=== PATIENT | female | born 1960 | race Two or more races ===

== ENCOUNTER → 2024-09-03 | Outpatient (CLI) | payer OTHER, MEDICAID, SELFPAY ==
--- NOTE | 2024-09-03 15:00 | XR_ITS ---
Examination: Duplex scan of the lower extremity, unilateral right complete Date and time of exam: September 03, 2024 1412 hours INDICATIONS: Right leg pain beginning 4 days ago Technique: Duplex scan of the extremity veins using B-mode/grayscale imaging and Doppler spectral analysis and color flow Attention is directed to internal echogenicity, compression and augmentation involving these veins, color flow assessment, spectral analysis Findings: Major deep venous structures in the extremity demonstrate normal course and caliber. There is no evidence of deep vein thrombosis. Normal color flow and spectral analysis Impression: Negative for DVT..
== END | disposition home or self-care (01) ==
LOC: CDIM 14:53
PROVIDERS: PCP Nurse Practitioner Family; Referring Provider Nurse Practitioner Family; Visit Provider Nurse Practitioner Family
DX: M79.604 Pain in right leg (principal)
CPT/HCPCS: 93971

== ENCOUNTER 2024-09-06 08:42 | Emergency (ER) | payer OTHER, MEDICAID, SELFPAY ==
[2024-09-06 08:55] VITALS: PULSE 72; O2SAT 100
[2024-09-06 08:59] VITALS: BP 186/74; PULSE 67; RESP 18; TEMP 36.7; O2SAT 99
[2024-09-06 09:20] VITALS: BP 157/65; PULSE 62; RESP 19; TEMP 37.1; O2SAT 99
--- NOTE | 2024-09-06 09:24 | PC.NURSE ---
patient here due to increased pain to dorsal lower leg. states the pain is severe when she tries to bare wt. pain has been for 5 days. did see provider given pain med and us done on leg, was told negative for blood clot. rt foot warn to touch, pedal pulse present. dorsal leg hurts from calf down to above ankle with worse pain above ankle. patient states the us was done on calf area, they did not go down all the way.
--- NOTE | 2024-09-06 09:28 | EKG_ITS ---
[facility] Test Date: 2024-09-06 Pat Name: DULCE CORDOVA Department: Room: - Gender: Female [employer]ley[employer] Commentator: : 1960 Requested By: Cande Ortiz Order Number: [id number] Reading MD: Cande Ortiz Measurements Intervals [place] Rate: 61 P: 44 [place]: 174 QRS: 16 QRSD: 94 T: 60 QT: 436 QTc: 440 Interpretive Statements SINUS RHYTHM LOW QRS VOLTAGE IN PRECORDIAL LEADS [QRS DEFLECTION < 1.0 mV IN CHEST LEADS] No previous ECG available for comparison /store/S0/[id number]/ecg/[id number].pdf
--- NOTE | 2024-09-06 09:53 | PD.EDLOWEX ---
Lower Extremity Injury RME/HPI General Chief Complaint: General Adult/Misc Complain Stated Complaint: RIGHT LEG PAIN Time Seen by Provider: 09/06/24 09:09 Arrival date/time: 09/06/24 08:42 RME / HPI RME / HPI Narrative: DR. TORRES MAIN ED EVALUATION: 64 year old female presents to the Emergency Department [facility] with complaint of increasing right calf pain onset 5 days. Patient is unable to bare weight. Pain is described as aching and rated moderate in severity. PMHx: Hypertension, diabetes mellitus type 2, and tubal ligation. Social Hx: No tobacco, alcohol, or substance use. Related Data Home Medications ?Medication ?Instructions ?Recorded ?Confirmed aspirin 81 mg tablet,delayed 81 mg PO QDAY 11/07/17 02/10/19 release (Aspir-) bethanechol chloride 50 mg tablet 50 mg PO TID 11/07/17 02/10/19 fluoxetine 20 mg capsule 20 mg PO QDAY 11/07/17 02/10/19 metformin 1,000 mg tablet 1,000 mg PO BID 11/07/17 02/10/19 pioglitazone 30 mg tablet 30 mg PO QDAY 11/07/17 02/10/19 amlodipine 5 mg tablet 5 mg PO QDAY 02/10/19 02/10/19 insulin glargine U-300 conc 300 50 units subcut QDAY 02/10/19 02/10/19 unit/mL (1.5 mL) subcutaneous pen (Toujeo SoloStar U-300 Insulin) losartan 50 mg tablet 50 mg PO QDAY 02/10/19 02/10/19 Allergies Allergy/AdvReac Type Severity Reaction Status Date / Time No Known Allergies Allergy Verified 02/10/19 12:48 Review of Systems Review of Systems Systems Reviewed: All systems reviewed, normal except as documented Narrative Review of Systems: GEN: No fever, no chills, no weight loss EYES: No discharge, no visual changes, no pain HEENT: No ear pain, no congestion, no sore throat PULM: No shortness of breath, no cough, no congestion CV: No chest pain, no dyspnea on exertion, no palpitations GI: No nausea, no vomiting, no diarrhea, no pain, no constipation : No frequency, no urgency and no dysuria MUSC/SKEL: + increasing right calf pain, no back pain SKIN: No rash PSYCH: No hallucinations, no depression HEME/LYMPH: No easy bleeding or bruising tendencies NEURO: No weakness, no headache Past Medical History Past Medical History CARDIAC: Positive Cardiac Disorders and Hypertension GENITOURINARY: Positive Genitourinary Disorders (STRESS INCONT.) ENT: Positive Cataracts (OU) ENDOCRINE: Positive Endocrine Disorders and Diabetes Mellitus Type 2 PSYCHO/SOCIAL: Positive Depression OTHER HISTORY: Positive Chicken Pox Family History FAMILY HISTORY: Positive Family Cardiac Disorders (HTN - PARENTS) Surgical History SURGICAL: Positive Tubal Ligation Social History SMOKING STATUS: Never smoker SUBSTANCE USE: does not use ALCOHOL: Never ED Exam Narrative Physical exam: GENERAL APPEARANCE: alert and oriented x 4, well-developed, well-nourished, in no acute distress VITALS: All vitals were reviewed and the pulse ox is 99% on room air, which is normal according to my interpretation. HEENT: Normocephalic, atraumatic; pupils equal, round, reactive to light; EOMI; mucous membranes pink, moist; oropharynx clear NECK: Supple LUNGS: CTABL; no wheezes, no rales, no rhonchi HEART: Regular rate, regular rhythm; normal S1, S2; no murmurs ABDOMEN: non distended; normal BS; soft, no tenderness, no guarding, no rebound; no masses, no organomegaly, no hernia BACK: no CVA tenderness EXTREMITIES: atraumatic; NEUROLOGIC: awake; alert and oriented x4; cranial nerves II-XII grossly intact; no focal sensory or motor deficits PSYCHIATRIC: appropriate mood and affect SKIN: warm, dry, normal color; no rashes Course Quality Measures none Orders Category Date Time Status EKG (ED ONLY) *Do not use* NOW Care 09/06/24 09:28 Completed EKG (ED Only) Stat Exams 09/06/24 09:28 Draft XR tibia fibula RT 2V Stat Exams 09/06/24 10:28 Completed B-Type Natriuretic Peptide Stat Lab 09/06/24 09:40 Completed CBC Stat Lab 09/06/24 09:40 Completed Comprehensive Metabolic Panel Stat Lab 09/06/24 09:40 Completed Lipase Stat Lab 09/06/24 09:40 Completed Magnesium Stat Lab 09/06/24 09:40 Completed Partial Thromboplastin Time Stat Lab 09/06/24 09:40 Completed Prothrombin Time with INR Stat Lab 09/06/24 09:40 Completed Troponin I Stat Lab 09/06/24 09:40 Completed CYCLObenzaPRINE [Flexeril] Med 09/06/24 13:00 Discontinued 5 mg PO X1 ONE Diclofenac Top Gel Med 09/06/24 09:30 Discontinued 1 gm TOP X1 ONE Ketorolac Inj [Toradol Inj] Med 09/06/24 10:29 Discontinued 30 mg IM X1 ONE Magnesium Oxide [Mag-Ox 400] Med 09/06/24 10:28 Discontinued 400 mg PO X1 ONE Vital Signs Vital signs: Vital Signs Temperature 98.1 F 09/06/24 08:59 Pulse Rate 67 09/06/24 08:59 Respiratory Rate 18 09/06/24 08:59 Blood Pressure 186/74 H 09/06/24 08:59 Pulse Oximetry (%) 99 09/06/24 08:59 Oxygen Delivery Method Room Air 09/06/24 08:59 Extremity Injury, Lower MDM Narrative MDM Narrative:: ISara am scribing for and in the presence of Dr. Torres. Patient data External records reviewed:: [facility] previous records (Reviewed colonoscopy note by Leary, dated 02/10/19.) Clinical information provided by:: patient Social determinants that could affect healthcare access:: none Patient has the following chronic illnesses:: Hypertension, diabetes mellitus type 2, and tubal ligation. How is presenting disease/condition affected by chronic disease/condition?: exacerbated by Evaluation data The following diagnostics were reviewed and interpreted by me:: lab results, radiology exam(s) and EKG tracing(s) (EKG done at 0955 hours: sinus rhythm, rate 61, low voltage in precordial leads,) Lab and/or radiology exams considered but not ordered:: none Interpretation Summary: Procedure(s): XR tibia fibula RT 2V Accession Number(s): [id number] cc: Jeanette Bhardwaj PA-C ([facility]); Clarke Harper MD; Cande Torres MD~ Examination: Tibia-Fibula, right , 2 views Technique: Tibia-fibula AP lateral 2 views Date and time of exam: September 06, 2024 1049 hrs. Indications: Onset right leg pain today. 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 Impression: No fracture No cortical bone destruction Dictated By: Clarke Harper MD Medications / Prescriptions Medications or Prescriptions considered but not ordered:: none Medication administrations:: Medication Administration History Discontinued Medications Cyclobenzaprine HCl (Cyclobenzaprine 5 Mg Tablet) 5 mg PO X1 ONE Stop: 09/06/24 13:01 Last Admin: 09/06/24 13:08 Dose: 5 mg Documented By: TATY Diclofenac Sodium (Diclofenac 1% Top Gel 100 Gm Tube) 1 gm TOP X1 ONE Stop: 09/06/24 09:31 Last Admin: 09/06/24 10:58 Dose: 1 gm Documented By: SP Ketorolac Tromethamine (Ketorolac Inj 30 Mg/Ml Vial) 30 mg IM X1 ONE Stop: 09/06/24 10:30 Last Admin: 09/06/24 10:58 Dose: 30 mg Documented By: SP Magnesium Oxide (Magnesium Oxide 400 Mg Tablet) 400 mg PO X1 ONE Stop: 09/06/24 10:29 Last Admin: 09/06/24 10:58 Dose: 400 mg Documented By: RUEL see above Consultations Consultation(s) initiated? (list below): No Diagnosis Extremity Injury, Lower Differential Diagnosis: ankle sprain and strain, fracture of femur and other (Muscle spasm) Most likely diagnosis given after review of the tests above:: Muscle spasm Hypomagnesemia Admission Indicated Admission indicated?: not indicated Admission Request Was there a request for admission?: No Disposition Plan Disposition Plan: Discharge Discharge Attestation Discharge Attestation: The patient and all family members were given an opportunity to ask questions and understood the discharge instructions. Discharge instructions specifically effects, indications for sooner follow up or return to the emergency department, and the expected course of current diagnosis. Patient condition: Stable Discharge Plan Plan Patient Disposition: HOME (Self Care) Prescriptions/Referrals Prescriptions/Med Rec: No Action aspirin [Aspir-81] 81 mg Tablet,Delayed Release (Dr/Ec) 81 mg PO QDAY metformin 1,000 mg Tablet 1,000 mg PO BID bethanechol chloride 50 mg Tablet 50 mg PO TID pioglitazone 30 mg Tablet 30 mg PO QDAY fluoxetine 20 mg Capsule 20 mg PO QDAY losartan 50 mg Tablet 50 mg PO QDAY amlodipine 5 mg Tablet 5 mg PO QDAY [place] Mon U-300 Insulin 300 unit/mL (1.5 mL) Insulin Pen 50 units subcut QDAY Referrals: Jeanette Bhardwaj PA-C ([facility]) [Primary Care Provider] - In 1 week Problem List Clinical Impression: Muscle spasm, Hypomagnesemia Patient/Caregiver Discharge Instructions Education Materials: ED Leg Spasm Print Language: Korean Stand Alone Forms: Jaqueline Award Info., Patient Portal Info Letter
[2024-09-06 10:04] LABS: B-Type Natriuretic Peptide 104 pg/mL (0-100)
[2024-09-06 10:09] LABS: Basophils % (Auto) 0 % (0-2.5); Eosinophils # (Auto) 0.1 Thou/mm3 (0.0-0.5); Eosinophils % (Auto) 1 % (0-10); Hematocrit 40.5 % (36.0-46.0); Hemoglobin 13.5 g/dL (12.0-16.0); Immature Granulocytes % (Auto) 0 % (0-0); Immature Granulocytes Auto 0.03 Thou/mm3 (0.00-0.00); Lymphocytes # (Auto) 1.1 Thou/mm3 (1.0-4.8); Lymphocytes % (Auto) 14 % (10-50); Mean Corpuscular HGB Conc 33.3 g/dl (31.0-37.0); Mean Corpuscular Hemoglobin 31.5 pg (25.0-35.0); Mean Corpuscular Volume 94 fL (80-100); Monocytes # (Auto) 0.5 Thou/mm3 (0.0-0.8); Monocytes % (Auto) 6 % (0-12); Neutrophils % (Auto) 78 % (37-80); Nucleated Red Blood Cell % 0 /100 WBC (0); Platelet Count 224 Thou/mm3 (140-440); RDW Standard Deviation 45.6 fL (36.4-46.3); Red Blood Count 4.29 Miln/mm3 (4.00-5.20); White Blood Count 7.7 Thou/mm3 (3.6-11.0)
[2024-09-06 10:17] LABS: Alanine Aminotransferase < 7 U/L (10-49); Albumin, Serum 4.3 gm/dL (3.4-4.8); Albumin/Globulin Ratio 1.5 (1.2-2.2); Alkaline Phosphatase 98 U/L (46-116); Anion Gap 5 (7-16); Aspartate Amino Transferase 18 U/L (0-34); BUN/Creatinine Ratio 13 Ratio (12-20); Bilirubin,Total 0.6 mg/dL (0.3-1.2); Blood Urea Nitrogen 12 mg/dL (9-23); Calcium 9.4 mg/dL (8.3-10.6); Calcium (Corrected) 9.4 mg/dL (8.5-10.1); Carbon Dioxide 30.6 mMol/L (20.0-31.0); Chloride 102 mMol/L (98-107); Creatinine (Component) 0.9 mg/dL (0.6-1.3); Globulin 2.8 gm/dL (2.3-3.5); Glucose 167 mg/dL (74-106); Lipase 35 U/L (12-53); Magnesium 1.5 mg/dL (1.6-2.6); Osmolality,Calculated 279 (275-295); Potassium 4.2 mMol/L (3.4-5.1); Sodium 138 mMol/L (136-145); Total Protein 7.1 gm/dL (5.7-8.2); Troponin I < 0.020 ng/mL (0.0-0.045); eGFR > 60 See Note
[2024-09-06 10:18] LABS: INR 1.1 (0.9-1.3); Partial Thromboplastin Time 27.2 Seconds (22.0-36.0); Prothrombin Time 11.5 Seconds (9.0-12.2)
--- NOTE | 2024-09-06 10:28 | XR_ITS ---
Examination: Tibia-Fibula, right , 2 views Technique: Tibia-fibula AP lateral 2 views Date and time of exam: September 06, 2024 1049 hrs. Indications: Onset right leg pain today. 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 Impression: No fracture No cortical bone destruction
[2024-09-06] MEDS: DICLOFENAC 1% TOP GEL 100 GM TUBE TOP (10:58)
[2024-09-06] MEDS: MAGNESIUM OXIDE 400 MG TABLET PO (10:58)
[2024-09-06] MEDS: KETOROLAC INJ 30 MG/ML VIAL IM (10:58)
[2024-09-06 12:00] VITALS: BP 148/70; PULSE 57; RESP 22; TEMP 36.9; O2SAT 99
[2024-09-06] MEDS: CYCLObenzaPRINE 5 MG TABLET PO (13:08)
[2024-09-06 13:25] VITALS: BP 135/60; PULSE 60; RESP 18; TEMP 36.6; O2SAT 99
== END 2024-09-06 13:26 | disposition home or self-care (01) ==
PROVIDERS: Emergency Provider Emergency Medicine; PCP Nurse Practitioner Family
DX: E83.42 Hypomagnesemia (principal)
CPT/HCPCS: 36415; 73590; 80053; 83690; 83735; 83880; 84484; 85025; 85610; 85730; 93005; 96372; 99283; J1885; A9270